=== PATIENT | male | born 1990 | race African-American/Black ===

== ENCOUNTER 2017-06-02 20:52 | Emergency (ER) | payer MEDICAID, OTHER ==
[~2017-06-02] VITALS: Ht 180.3 cm; Wt 68.0 kg
[2017-06-02 23:42] VITALS: BP 95/70
[2017-06-02] MEDS ORDERED: HYDROcodone-ACET 10/325MG TAB PO ONE (23:45)
[2017-06-02] MEDS ORDERED: LORazepam 0.5 MG TAB PO ONE (23:45)
[2017-06-03] MEDS ORDERED: cefTRIAXone W LIDOCAINE 1 GM IM IM ONE (00:15)
[2017-06-03] MEDS ORDERED: cefTRIAXone 1GM/10ml IVPUSH 10 ML IV ONE (00:30)
== END 2017-06-03 00:44 | disposition home or self-care (01) ==
LOC: ER 20:52
DX: L02.01 Cutaneous abscess of face (principal); L02.31 Cutaneous abscess of buttock
CPT/HCPCS: 10060; 96372; 99283; C1887; J0696

== ENCOUNTER 2017-06-03 12:19 | Emergency (ER) | payer MEDICAID ==
[~2017-06-03] VITALS: Ht 180.3 cm; Wt 68.0 kg
[2017-06-03 13:07] VITALS: BP 102/53
== END 2017-06-03 13:39 | disposition home or self-care (01) ==
LOC: ER 12:19
DX: L02.415 Cutaneous abscess of right lower limb (principal); Z48.01 Encounter for change or removal of surgical wound dressing

== ENCOUNTER 2017-06-06 17:47 | Emergency (ER) | payer MEDICAID ==
[~2017-06-06] VITALS: Ht 180.3 cm; Wt 68.0 kg
[2017-06-06 17:53] VITALS: BP 108/57
== END 2017-06-06 18:13 | disposition home or self-care (01) ==
LOC: ER 17:51
DX: L02.31 Cutaneous abscess of buttock (principal); Z48.01 Encounter for change or removal of surgical wound dressing